=== PATIENT | male | born 1960 | race Caucasian/White ===

== ENCOUNTER 2017-08-23 14:23 | Emergency (ER) | payer MEDICARE, MEDICAID ==
[~2017-08-23] VITALS: Ht 180.3 cm; Wt 71.0 kg
[2017-08-23 14:37] VITALS: BP 124/72
== END 2017-08-23 17:12 | disposition home or self-care (01) ==
LOC: ED 15:54
DX: S00.81XA Abrasion of other part of head, initial encounter (principal); W19.XXXA Unspecified fall, initial encounter; Y93.89 Activity, other specified; Y99.8 Other external cause status; Y92.89 Other specified places as the place of occurrence of the external cause
CPT/HCPCS: 70450; 99284

== ENCOUNTER 2017-08-25 16:22 | Emergency (ER) | payer MEDICARE, MEDICAID ==
[~2017-08-25] VITALS: Ht 182.9 cm; Wt 62.0 kg
[2017-08-25 16:30] VITALS: BP 112/70
[2017-08-25] MEDS ORDERED: PLEASE ENTER HEIGHT AND WEIGHT MC SCH (16:30)
[2017-08-25] MEDS ORDERED: DIPH,PERTUSS(ACELL),TET VAC/PF 0.5 ML IM-VACC ONE ×2 (16:30→16:36)
[2017-08-25] MEDS ORDERED: LIDOCAINE 1%, 10ML INFIL ONE (16:30)
[2017-08-25] MEDS ORDERED: LIDOCAINE-MPF 1%, 2ML ONE (16:40)
[2017-08-25] MEDS ORDERED: BACITRACIN ZINC OINT 500U/GM, 0.9 GM ONE (16:57)
== END 2017-08-25 18:06 | disposition home or self-care (01) ==
LOC: ED 18:00
DX: S01.01XA Laceration without foreign body of scalp, initial encounter (principal); R00.1 Bradycardia, unspecified; W18.30XA Fall on same level, unspecified, initial encounter; Y93.89 Activity, other specified; Y99.8 Other external cause status; Y92.009 Unspecified place in unspecified non-institutional (private) residence as the place of occurrence of the external cause; Z79.899 Other long term (current) drug therapy
CPT/HCPCS: 12001; 90471; 90715; 99283; J3490

== ENCOUNTER 2017-10-29 08:22 | Emergency (ER) | payer MEDICARE, MEDICAID ==
[~2017-10-29] VITALS: Ht 177.8 cm; Wt 68.0 kg
[2017-10-29 10:02] VITALS: BP 109/56
== END 2017-10-29 11:12 | disposition home or self-care (01) ==
LOC: ED 08:57
DX: S09.8XXA Other specified injuries of head, initial encounter (principal); X58.XXXA Exposure to other specified factors, initial encounter; Y93.89 Activity, other specified; Y99.8 Other external cause status; Y92.009 Unspecified place in unspecified non-institutional (private) residence as the place of occurrence of the external cause
CPT/HCPCS: 70450; 99284

== ENCOUNTER 2017-12-05 12:08 | Emergency (ER) | payer MEDICARE, MEDICAID ==
[~2017-12-05] VITALS: Ht 182.9 cm; Wt 57.4 kg
[2017-12-05 15:47] VITALS: BP 141/118
== END 2017-12-05 17:28 | disposition home or self-care (01) ==
LOC: ED 12:14
DX: S62.317A Displaced fracture of base of fifth metacarpal bone, left hand, initial encounter for closed fracture (principal); X58.XXXA Exposure to other specified factors, initial encounter; Y93.89 Activity, other specified; Y99.8 Other external cause status; Y92.89 Other specified places as the place of occurrence of the external cause
CPT/HCPCS: 99284

== ENCOUNTER 2019-02-05 13:36 | Emergency (ER) | payer MEDICARE, MEDICAID ==
[~2019-02-05] VITALS: Ht 175.3 cm; Wt 69.0 kg
[~2019-02-05 13:36] MED LIST: CALC500T29 PO; CHOL10003 PO; DIVA500T2 PO; FAMO20TA7 PO; METO25TA35 PO; QUET150T4 PO; SERT50TA28 PO
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
[2019-02-05] MEDS ORDERED: ONDANSETRON ODT 4 MG ONE (14:15)
[2019-02-05] MEDS ORDERED: ONDANSETRON ODT 4 MG PO ONE (14:30)
--- NOTE | 2019-02-05 14:38 | NUR ---
Call placed to CT, pt 2nd next. pt helped to and from bed jensen. No change in condition.
--- NOTE | 2019-02-05 15:16 | NUR ---
TASK RN, COVERING MEAL BREAK. PT TO CT.
--- NOTE | 2019-02-05 15:53 | NUR ---
all results back, pt up for recheck.
[2019-02-05 16:18] VITALS: BP 124/73
--- NOTE | 2019-02-05 16:18 | NUR ---
CT NEG, PT TO BE DC. ATTEMPTING TO BOOK TRANSPORT TO [facility]. VSS. TOILETED. CALL SORENSEN IN REACH.
--- NOTE | 2019-02-05 17:01 | NUR ---
attempt to call emergency contacts, 2 numbers not working and 1 is the incorrect number. pt toileted. call yeung in reach.
--- NOTE | 2019-02-05 17:05 | NUR ---
AFTER MULTIPLE ATTEMPTS TO FIND PT [facility] WHICH WERE UNSUCCESSFUL, CALL PLACED TO SW TO ADVANCE SEARCH.
--- NOTE | 2019-02-05 17:16 | NUR ---
CONTACT MADE WITH PT [facility]-TER[facility] [phone], , INFORMED STAFF PT IS BEING DISCHARGED. STAFF STATES PT CAN BE SENT HOME IN CAB, ADDRESS: [address] [place], AND THEY WILL MEET PT AT THE DOOR.
--- NOTE | 2019-02-05 17:43 | NUR ---
pt dressed. all belongings with pt, including cane. pt transferred to wheelchair. tech to accompany pt to discharge window and wait w/ pt for taxi. [employer] book [id number]. call to longterm, they will help pt to house. dc papers given to pt in bag.
== END 2019-02-05 17:48 | disposition home or self-care (01) ==
LOC: ED 15:02
DX: S09.90XA Unspecified injury of head, initial encounter (principal); F17.200 Nicotine dependence, unspecified, uncomplicated; W01.0XXA Fall on same level from slipping, tripping and stumbling without subsequent striking against object, initial encounter; Y93.89 Activity, other specified; Y92.89 Other specified places as the place of occurrence of the external cause; Y99.8 Other external cause status
CPT/HCPCS: 70450; 72125; 99284; Q0162

== ENCOUNTER 2019-04-03 19:11 | Emergency (ER) | payer MEDICARE, MEDICAID ==
[~2019-04-03] VITALS: Ht 175.3 cm; Wt 68.0 kg
[2019-04-03] MEDS ORDERED: DIPH,PERTUSS(ACELL),TET VAC/PF 0.5 ML IM-VACC ONE ×2 (19:30→19:53)
[2019-04-03] MEDS ORDERED: LIDOCAINE-MPF 1%, 5ML INFIL ONE (19:30)
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
--- NOTE | 2019-04-03 19:48 | NUR ---
[facility] provided number and address of senior living. [phone] [place] [address]
[2019-04-03] MEDS ORDERED: LIDOCAINE-MPF 1%, 5ML ONE (19:52)
--- NOTE | 2019-04-03 20:12 | NUR ---
pt to xray
--- NOTE | 2019-04-03 20:25 | NUR ---
Returned for Xray
--- NOTE | 2019-04-03 21:11 | NUR ---
Provider at bedside suture left eye/forehead lac
--- NOTE | 2019-04-03 21:16 | NUR ---
Contacted pts assisted living to advise that pt will be discharged. No answer, left general message, maintaining HIPPA requesting return call at [phone].
[2019-04-03] MEDS ORDERED: NEOSPORIN OINT. PKT 1 PACKET ONE (21:24)
[2019-04-03 21:45] VITALS: BP 115/62
--- NOTE | 2019-04-03 22:06 | NUR ---
Patient and [facility] given discharge instructions and they have confirmed that they understand the instructions. Left via [facility] in no distress.
== END 2019-04-03 22:07 | disposition home or self-care (01) ==
LOC: ED 22:04
DX: S01.81XA Laceration without foreign body of other part of head, initial encounter (principal); R07.89 Other chest pain; M25.552 Pain in left hip; W18.30XA Fall on same level, unspecified, initial encounter; Y93.89 Activity, other specified; Y92.098 Other place in other non-institutional residence as the place of occurrence of the external cause; Y99.8 Other external cause status
CPT/HCPCS: 12051; 90471; 90715; 99284

== ENCOUNTER 2019-04-09 16:53 | Emergency (ER) | payer MEDICARE, MEDICAID ==
[~2019-04-09] VITALS: Ht 182.9 cm; Wt 73.0 kg
--- NOTE | 2019-04-09 17:09 | NUR ---
BREAK RN: PT LINA FIGUEROA AFTER A GLF AT HIS SNF. NO LOC. PT HAS A LAC ON HIS LEFT ARM. PT HAS A HISTORY OF A TBI. WHEN PT GET'S DISCHARGED DIRECTOR WAGNER [phone] IS TO BE CALLED FOR HIS R[facility].
--- NOTE | 2019-04-09 17:28 | NUR ---
REPORT GIVEN TO PIPE ANDERSON
[2019-04-09] MEDS ORDERED: LIDOCAINE-MPF 1%, 5ML INFIL ONE (17:30)
[2019-04-09] MEDS ORDERED: LIDOCAINE 1%-EPI 1:100K, 20ML ONE (17:31)
--- NOTE | 2019-04-09 18:14 | NUR ---
PROVIDER-SUTURED LEFT ARM LACERATION- BLEEDING CONTROLLED. DRESSED WITH BACITRACIN DRESSING
[2019-04-09] MEDS ORDERED: NEOSPORIN OINT. PKT 1 PACKET ONE ×2 (18:22→19:10)
--- NOTE | 2019-04-09 18:40 | NUR ---
TO CT SCAN
[2019-04-09 19:07] VITALS: BP 128/76
--- NOTE | 2019-04-09 21:08 | NUR ---
ASSISTED: [facility] ASSISTED CONTACT: WAGNER MINAYA [phone] WAGNER MANDO S SHE IS UNABLE TO PICK PATIENT UP AND PATIENT UNABLE TO AMBULATE (SEVERE UNILATERAL WEAKNESS FROM OLD TBI)-THROUGHPUT RN MADE AWARE- TO HAVE [facility] TRANSPORT
--- NOTE | 2019-04-09 21:21 | NUR ---
CALLED [facility] SPOKE TO AROLDO SHE STATES THAT SHE COULD NO ID THE PT.
== END 2019-04-09 23:14 | disposition home or self-care (01) ==
LOC: ED 17:10
DX: S51.812A Laceration without foreign body of left forearm, initial encounter (principal); S09.90XA Unspecified injury of head, initial encounter; W01.0XXA Fall on same level from slipping, tripping and stumbling without subsequent striking against object, initial encounter; Y93.89 Activity, other specified; Y92.89 Other specified places as the place of occurrence of the external cause; Y99.8 Other external cause status
CPT/HCPCS: 12032; 70450; 99284

== ENCOUNTER 2019-06-26 17:19 | Emergency (ER) | payer MEDICARE, MEDICAID ==
[~2019-06-26] VITALS: Ht 175.3 cm; Wt 56.0 kg
--- NOTE | 2019-06-26 17:36 | NUR ---
PT BIB EMS FOR GLF AND LAC TO BACK OF HEAD. NO LOC. PT HAS TBI AND LEFT SIDED DEFICITS, WALKS WITH WALKER AND LOST BALANCE. BLEEDING CONTROLLED. VSS. EKG DONE.
--- NOTE | 2019-06-26 18:46 | NUR ---
PT IS BACK FROM CT. CO PAIN IN HEAD FROM LAC.
[2019-06-26 18:49] VITALS: BP 122/78
--- NOTE | 2019-06-26 19:32 | NUR ---
Report received from PIPE Qureshi. This RN to assume care. Patient to be discharged. Patient states he is ambulatory with a cane, baseline. Attempted to stand patient up and he is not steady on his feet for walking at this time. Medical transport being arranged for patient to return to [facility].
--- NOTE | 2019-06-26 19:49 | NUR ---
[facility] @1999, keena set up to address on file at this time.
--- NOTE | 2019-06-26 20:17 | NUR ---
[facility] arrived to take patient back to halfway. Discharge instructions given. All questions and concerns addressed. Patient ambulatory with a steady gait.
== END 2019-06-26 20:19 | disposition home or self-care (01) ==
LOC: ED 17:54
DX: S01.01XA Laceration without foreign body of scalp, initial encounter (principal); F17.200 Nicotine dependence, unspecified, uncomplicated; R94.31 Abnormal electrocardiogram [ECG] [EKG]; W01.0XXA Fall on same level from slipping, tripping and stumbling without subsequent striking against object, initial encounter; Y93.89 Activity, other specified; Y92.009 Unspecified place in unspecified non-institutional (private) residence as the place of occurrence of the external cause; Y99.8 Other external cause status
CPT/HCPCS: 12032; 70450; 71045; 93005; 99285

== ENCOUNTER 2019-11-14 12:38 | Inpatient (IN) | payer MEDICARE, MEDICAID ==
[~2019-11-14] VITALS: Ht 167.6 cm; Wt 54.5 kg
[2019-11-14] MEDS ORDERED: ONDANSETRON 2MG/ML, 2ML ONE (13:14)
[2019-11-14] MEDS ORDERED: MORPHINE SULFATE 4 MG/ML, 1ML ONE ×2 (13:14→15:38)
[2019-11-14] MEDS: MORPHINE SULFATE 4 MG/ML, 1ML IVPush PRN ×2 (13:16→15:39)
--- NOTE | 2019-11-14 13:21 | NUR ---
TASK RN NOTE: IV START, LABS DRAWN, PT MEDICATED PER EMAR. NAD NOTED AT THIS TIME. AWAITING IMAGING. SIDE RAILS UP, CALL LIGHT IN REACH. BEAR WARMER ON FOR PT COMFORT.
[2019-11-14] MEDS ORDERED: SODIUM CHLORIDE FLUSH 10ML SYR IVF ONE (13:30)
[2019-11-14] MEDS ORDERED: ONDANSETRON 2MG/ML, 2ML IVPush ONE (13:30)
--- NOTE | 2019-11-14 13:51 | NUR ---
PT STATES LEFT HIP PAIN IMPROVED SINCE MEDICATED FOR SAME. APPEARS MORE RELAXED
--- NOTE | 2019-11-14 14:30 | NUR ---
SPOKE WITH BLOOD TESTER FOWL VIA PHONE AND MADE AWARE PT HAS WOUND ON LEFT HIP. MD AT BEDSIDE WITH ULTRASOUND AND LABS NOW TO BE ORDERED.
--- NOTE | 2019-11-14 14:30 | NUR ---
LESION WITH ERYTHEMA LEFT HIP NOTED WHEN PANTS REMOVED.
[2019-11-14 15:13] LABS: MEAN CORPUSCULAR HEMOGLOBIN 30.8 pg (27.5-34.5); MEAN PLATELET VOLUME 9.1 fL (7.4-10.4); PLATELET COUNT 174 x10^3/uL (130-400); RED BLOOD COUNT 4.88 x10^6/uL (4.38-5.82); RED CELL DISTRIBUTION WIDTH 14.7 % (9.4-14.8)
[2019-11-14 15:13] LABS: HCT (SEDRATE) 42.1 % (39.2-51.8)
[2019-11-14 15:15] LABS: MD YES
[2019-11-14] MEDS ORDERED: CEFTRIAXONE PMX 1GM/50ML 50 ML ONE (15:20)
[2019-11-14 15:25] LABS: ALBUMIN 3.4 g/dL (3.4-5.0); ANION GAP 8 mmol/L (5-15); CALCIUM 9.5 mg/dL (8.5-10.1); CHLORIDE 102 mmol/L (98-107)
[2019-11-14] MEDS ORDERED: CEFTRIAXONE PMX 1GM/50ML 50 ML IVPB ONE (15:30)
--- NOTE | 2019-11-14 15:34 | NUR ---
RECTAL TEMP TAKEN: 101.8.
[2019-11-14 15:35] LABS: C-REACTIVE PROTEIN, QUANT > 19.00 mg/dL (0.02-0.49)
[2019-11-14] MEDS ORDERED: ACETAMINOPHEN 650 MG SUPP PR ONE (16:00)
[2019-11-14] MEDS ORDERED: ACETAMINOPHEN 650 MG SUPP ONE (16:02)
--- NOTE | 2019-11-14 16:09 | NUR ---
PT MEDICATED PER APR. PT RESTING COMFORTABLY AND "FIST BUMPED" WHEN ASKED IF HIS PAIN WAS BETTER.
--- NOTE | 2019-11-14 16:21 | NUR ---
SANDER SETTER PATEL [phone].
--- NOTE | 2019-11-14 16:25 | NUR ---
PATEL, ORDER ENTRY ADMINISTRATOR, ADVISED OF PT BEING ADMITTED. ORDER ENTRY ADMINISTRATOR WANTED TO MAKE SURE STAFF KNEW HE HAS A HX OF DEMENTIA AND MAY BECOME CONFUSED, ESPECIALLY IN THE EVENING. PT FELL IN MARCH AND HASN'T PUT WEIGHT ON IT SINCE THEN.
--- NOTE | 2019-11-14 16:29 | NUR ---
VIT B 2000 UNITS/DAILY CITRICEL 500 MG/DAILY SERTRALINE 100 MG/DAILY DEPAKOT 500 MG/DAILY AT NIGHT SEROQUEL 200 MG/DAILY AT [facility] LORAZEPAM 0.5 MG PRN AGRESSION
[2019-11-14 16:41] LABS: BAND#(MANUAL) 0.64 x10^3/uL; BANDS%(MANUAL) 4 % (0-7); LYMPH#(MANUAL) 0.97 x10^3/uL (1-3.4); LYMPHS% (MANUAL) 6 % (22-44); MONOS#(MANUAL) 1.93 x10^3/uL (0.3-2.7); MONOS% (MANUAL) 12 % (2-9); SEG#(MANUAL) 12.56 x10^3/uL (1.8-6.8); SEGS% (MANUAL) 78 % (42-75)
[2019-11-14 16:42] LABS: <PLATELET ESTIMATE> ADEQUATE; <PLT MORPHOLOGY> NORMAL PLT MORPH; <RBC MORPHOLOGY> NORMAL
[2019-11-14] MEDS ORDERED: SODIUM CHLORIDE FLUSH 10ML SYR IVF PRN (17:00)
[2019-11-14] MEDS ORDERED: CITRACEL (17:48)
[2019-11-14] MEDS ORDERED: [UNRECOGNIZED DRUG - OTHER] (17:48)
[2019-11-14] MEDS ORDERED: QUET200T4 PO (17:48)
[2019-11-14] MEDS ORDERED: SERT100T32 PO (17:48)
[2019-11-14] MEDS ORDERED: DIVA500T2 PO (17:48)
[2019-11-14] MEDS ORDERED: LORA-445 PO (17:48)
--- NOTE | 2019-11-14 18:00 | NUR ---
PHONE REPORT GIVEN TO ROULA.
--- NOTE | 2019-11-14 18:29 | NUR ---
PROVIDER BEDSIDE TO WITHDRAW FLUID FROM ABCESS, APPROX 10 ML. SAMPLE SENT TO LAB.
[2019-11-14] MEDS: SODIUM CHLORIDE 0.9% 1,000 ML IV SCH (18:34)
--- NOTE | 2019-11-14 18:42 | NUR ---
DR HORTA BEDSIDE TO DISCUSS BEDSIDE SAMPLE COLLECTION AND SURGICAL OPTIONS. MD ADVISED PT HE SPOKE WITH CAREGIVER ABOUT SURGICAL OPTIONS. UPDATED TEMP ADVISED TO RECEIVING NURSE FOR ROOM 451. OFF FLOOR TO XRAY.
--- NOTE | 2019-11-14 18:56 | NUR ---
DR HORTA SERVICE CONTACTED TO HAVE DR TO CONFIRM LAB ORDER, [phone].
[2019-11-14 18:57] LABS: INTERNATIONAL NORMALIZED RATIO 1.19 (0.93-1.1); PROTHROMBIN TIME 12.3 Seconds (9.6-11.5)
[2019-11-14] MEDS ORDERED: SODIUM CHLORIDE 0.9%, 500ML IVBOLUS ONE (19:00)
[2019-11-14] MEDS ORDERED: BISACODYL 10 MG SUPP PR PRN (19:00)
[2019-11-14] MEDS ORDERED: ACETAMINOPHEN 325 MG TABLET PO PRN (19:00)
[2019-11-14] MEDS ORDERED: VANCOMYCIN PER PHARMACY MC PRN (19:00)
[2019-11-14] MEDS ORDERED: POLYETHYLENE GLYCOL 17 GM PACKET PO PRN (19:00)
[2019-11-14] MEDS ORDERED: METHOCARBAMOL 500 MG TABLET PO PRN (19:00)
[2019-11-14] MEDS ORDERED: LORazepam 1MG TABLET PO PRN (19:00)
[2019-11-14] MEDS ORDERED: GABAPENTIN 300 MG CAPSULE PO PRN (19:00)
--- NOTE | 2019-11-14 19:22 | NUR ---
VERNON CALLED AND STATED "THAT SAMPLE WAS SYNOVIAL FLUID"
[2019-11-14 20:16] VITALS: BP 102/70
[2019-11-14] MEDS ORDERED: PHARMACOKINETIC MONITORING MC PRN (20:30)
[2019-11-14] MEDS ORDERED: VANCOMYCIN 1,300 MG in SODIUM CHLORIDE 0.9% 250 ML IV ONE (20:30)
[2019-11-14] MEDS ORDERED: PHARMACOKINETIC CONSULTATION MC ONE (20:30)
[2019-11-14] MEDS: FAMOTIDINE 20 MG TABLET PO SCH (20:31)
[2019-11-14] MEDS: DIVALPROEX 500 MG TABLET.DR PO SCH (20:31)
[2019-11-14] MEDS: OXYcodone IR 5MG TABLET PO PRN (20:32)
[2019-11-14] MEDS: PIPERACILLIN/TAZO/PMX 3.375GM 50 ML IV SCH (21:43)
[2019-11-15] MEDS: morphine SULFATE 10 MG/ML, 1ML IVPush PRN ×2 (00:34→20:36)
[2019-11-15 00:55] LABS: MICROSCOPIC INDICATED
[2019-11-15 01:05] VITALS: BP 104/54
[2019-11-15] MEDS: SODIUM CHLORIDE 0.9% 1,000 ML IV SCH ×4 (02:14→23:11)
[2019-11-15] MEDS: PIPERACILLIN/TAZO/PMX 3.375GM 50 ML IV SCH ×2 (03:32→10:27)
[2019-11-15 05:45] LABS: CHLORIDE 110 mmol/L (98-107)
[2019-11-15 06:02] LABS: MEAN CORPUSCULAR HEMOGLOBIN 30.7 pg (27.5-34.5); MEAN CORPUSCULAR HGB CONC 32.8 g/dL (33.2-36.2); MEAN PLATELET VOLUME 7.7 fL (7.4-10.4); PLATELET COUNT 157 x10^3/uL (130-400); RED BLOOD COUNT 4.04 x10^6/uL (4.38-5.82); RED CELL DISTRIBUTION WIDTH 14.9 % (9.4-14.8)
[2019-11-15 06:03] LABS: ALANINE AMINOTRANSFERASE 26 U/L (12-78); ALBUMIN 2.3 g/dL (3.4-5.0); ALKALINE PHOSPHATASE 40 U/L (45-117); ANION GAP 7 mmol/L (5-15); BILIRUBIN,TOTAL 0.6 mg/dL (0.2-1.0); CALCIUM 8.3 mg/dL (8.5-10.1); CREATININE 0.92 mg/dL (0.7-1.3); TOTAL PROTEIN 6.2 g/dL (6.4-8.2)
[2019-11-15 06:43] LABS: BASOPHILS # (AUTO) 0.02 x10^3/uL (0-0.1); BASOPHILS % (AUTO) 0 % (0-1); EOSINOPHILS # (AUTO) 0.01 x10^3/uL (0-0.4); EOSINOPHILS % (AUTO) 0 % (1-7); LYMPHOCYTES # (AUTO) 0.47 x10^3/uL (1-3.4); LYMPHOCYTES % (AUTO) 4 % (22-44); MD SCAN; MONOCYTES # (AUTO) 0.91 x10^3/uL (0.2-0.8); MONOCYTES % (AUTO) 7 % (2-9); NEUTROPHILS # (AUTO) 11.58 x10^3/uL (1.8-6.8); NEUTROPHILS % (AUTO) 89 % (42-75)
[2019-11-15 07:14] VITALS: BP 99/74
[2019-11-15] MEDS ORDERED: VANCOMYCIN 1,100 MG in SODIUM CHLORIDE 0.9% 250 ML IV SCH (09:00)
[2019-11-15] MEDS: SERTRALINE 100MG TABLET PO SCH ×2 (09:50→10:24)
[2019-11-15] MEDS: QUETIAPINE 200 MG TABLET PO SCH ×2 (09:50→10:25)
[2019-11-15] MEDS: FAMOTIDINE 20 MG TABLET PO SCH ×3 (09:51→20:14)
[2019-11-15] MEDS: SENNA/DOCUSATE TABLET PO SCH ×2 (09:51→10:24)
[2019-11-15] MEDS ORDERED: OMNIPAQUE 350 MG/ML, 100ML BOTTLE ONE (10:38)
[2019-11-15] MEDS ORDERED: ENOXAPARIN 40 MG/0.4 ML SQ ONE (11:30)
[2019-11-15 11:51] VITALS: BP 92/56
[2019-11-15] MEDS ORDERED: SODIUM CHLORIDE 0.9% 500 ML IV SCH (12:00)
[2019-11-15] MEDS ORDERED: ALBUMIN HUMAN 25% 100 ML IV PRN (12:00)
[2019-11-15] MEDS ORDERED: ALBUMIN HUMAN 25% 100 ML ONE (12:04)
[2019-11-15 12:45] VITALS: BP 101/66
[2019-11-15] MEDS: DAPTOMYCIN IVPB SCH (17:00)
[2019-11-15] MEDS: SODIUM CHLORIDE 0.9% IVPB SCH (17:00)
[2019-11-15] MEDS: ENOXAPARIN 40 MG/0.4 ML SQ SCH (18:25)
[2019-11-15] MEDS: DIVALPROEX 500 MG TABLET.DR PO SCH (20:15)
[2019-11-15 20:26] VITALS: BP 123/73
[2019-11-15 23:59] VITALS: BP 116/68
[2019-11-16] MEDS: SODIUM CHLORIDE 0.9% 1,000 ML IV SCH ×2 (06:02→20:08)
[2019-11-16 06:13] LABS: MEAN CORPUSCULAR HEMOGLOBIN 30.8 pg (27.5-34.5); MEAN CORPUSCULAR HGB CONC 32.5 g/dL (33.2-36.2); MEAN PLATELET VOLUME 7.8 fL (7.4-10.4); PLATELET COUNT 155 x10^3/uL (130-400); RED BLOOD COUNT 3.84 x10^6/uL (4.38-5.82)
[2019-11-16 06:18] LABS: CHLORIDE 113 mmol/L (98-107)
[2019-11-16 06:25] LABS: ALANINE AMINOTRANSFERASE 20 U/L (12-78); ALBUMIN 2.1 g/dL (3.4-5.0); ALKALINE PHOSPHATASE 40 U/L (45-117); ANION GAP 6 mmol/L (5-15); BILIRUBIN,TOTAL 0.5 mg/dL (0.2-1.0); CALCIUM 8.4 mg/dL (8.5-10.1); CREATINE KINASE, TOTAL 172 U/L (39-308); CREATININE 0.69 mg/dL (0.7-1.3); TOTAL PROTEIN 5.8 g/dL (6.4-8.2)
[2019-11-16 06:46] LABS: MD YES
[2019-11-16 06:48] LABS: <PLATELET ESTIMATE> ADEQUATE; <PLT MORPHOLOGY> NORMAL PLT MORPH; <RBC MORPHOLOGY> NORMAL; BAND#(MANUAL) 0.71 x10^3/uL; BANDS%(MANUAL) 7 % (0-7); LYMPH#(MANUAL) 0.71 x10^3/uL (1-3.4); LYMPHS% (MANUAL) 7 % (22-44); MONOS#(MANUAL) 0.31 x10^3/uL (0.3-2.7); MONOS% (MANUAL) 3 % (2-9); SEG#(MANUAL) 8.47 x10^3/uL (1.8-6.8); SEGS% (MANUAL) 83 % (42-75)
[2019-11-16] MEDS ORDERED: SODIUM CHLORIDE 0.9% 50 ML ONE (06:49)
[2019-11-16] MEDS ORDERED: VANCOMYCIN 1,000 MG ONE ×3 (06:49→15:33)
[2019-11-16] MEDS ORDERED: EPINEPHRINE 1 MG/ML, 1ML ONE (06:49)
[2019-11-16] MEDS ORDERED: ROPIvacaine/PF 0.5%, 20 ML ONE (06:49)
[2019-11-16] MEDS ORDERED: TRANEXAMIC ACID 100 MG/ML, 10ML ONE ×2 (09:35)
[2019-11-16] MEDS: QUETIAPINE 200 MG TABLET PO SCH (09:36)
[2019-11-16] MEDS: SENNA/DOCUSATE TABLET PO SCH (09:36)
[2019-11-16] MEDS: SERTRALINE 100MG TABLET PO SCH (09:36)
[2019-11-16] MEDS: FAMOTIDINE 20 MG TABLET PO SCH ×2 (09:36→20:37)
[2019-11-16] MEDS ORDERED: FENTANYL PF 250 MCG/5ML ONE ×2 (11:12→15:54)
[2019-11-16] MEDS ORDERED: ROCURONIUM 10MG/ML,5ML ONE (11:13)
[2019-11-16] MEDS ORDERED: SUGAMMADEX 200 MG/2 ML IVPush ONE (11:13)
[2019-11-16] MEDS ORDERED: ONDANSETRON 2MG/ML, 2ML ONE ×2 (11:13→14:59)
[2019-11-16 11:28] VITALS: BP 108/78
[2019-11-16 12:14] VITALS: BP 135/73
[2019-11-16] MEDS ORDERED: KETOROLAC 60 MG/2 ML ONE (12:29)
[2019-11-16] MEDS ORDERED: CHLORHEXIDINE 15 ML UDC MM ONE (12:29)
[2019-11-16] MEDS ORDERED: CHLORHEXIDINE 15 ML UDC ONE (12:33)
[2019-11-16] MEDS ORDERED: PROPOFOL 50 ML ONE (14:59)
[2019-11-16] MEDS ORDERED: NEOSTIGMINE 1 MG/ML, 10ML ONE (14:59)
[2019-11-16] MEDS ORDERED: CEFAZOLIN 1,000 MG ONE (14:59)
[2019-11-16] MEDS ORDERED: GLYCOPYRROLATE 0.2MG/1ML, 5ML ONE (14:59)
[2019-11-16] MEDS ORDERED: PROPOFOL 10 MG/ML, 20ML ONE (14:59)
[2019-11-16] MEDS ORDERED: DEXAMETHASONE 4 MG/ML, 1ML ONE (14:59)
[2019-11-16] MEDS ORDERED: SUCCINYLCHOLINE 20 MG/ML, 10ML ONE (14:59)
[2019-11-16] MEDS ORDERED: FENTANYL PF 100 MCG/2ML ONE (16:28)
[2019-11-16] MEDS ORDERED: OXYcodone 5 MG/5 ML ORAL.SOL UDC ONE (16:28)
[2019-11-16] MEDS ORDERED: hydrALAzine 20 MG/ML, 1ML IV PRN (17:00)
[2019-11-16] MEDS ORDERED: EPHEDRINE 50 MG/ML, 1ML IVPush PRN (17:00)
[2019-11-16] MEDS ORDERED: HYDROmorphone 1 MG/ML, 1ML INJ IVPush PRN (17:00)
[2019-11-16] MEDS ORDERED: OXYcodone 5 MG/5 ML ORAL.SOL UDC PO PRN (17:00)
[2019-11-16] MEDS ORDERED: PROMETHAZINE 12.5 MG SUPP PR PRN (17:00)
[2019-11-16] MEDS ORDERED: LABETALOL 5MG/ML, 20ML IV PRN (17:00)
[2019-11-16] MEDS ORDERED: ACETAMINOPHEN 325 MG TABLET PO PRN (17:00)
[2019-11-16] MEDS ORDERED: FENTANYL PF 100 MCG/2ML IV PRN (17:00)
[2019-11-16 19:45] VITALS: BP 109/72
[2019-11-16] MEDS: DAPTOMYCIN IVPB SCH (20:07)
[2019-11-16] MEDS: SODIUM CHLORIDE 0.9% IVPB SCH (20:07)
[2019-11-16] MEDS: DIVALPROEX 500 MG TABLET.DR PO SCH (20:37)
[2019-11-16] MEDS: OXYcodone IR 5MG TABLET PO PRN (20:38)
[2019-11-16] MEDS: ENOXAPARIN 40 MG/0.4 ML SQ SCH (21:12)
[2019-11-17] VITALS (9 sets, daily range): BP systolic 93–135; BP diastolic 51–77
[2019-11-17] MEDS: SODIUM CHLORIDE 0.9% 1,000 ML IV SCH ×2 (02:28→09:19)
[2019-11-17 07:10] LABS: MEAN CORPUSCULAR HEMOGLOBIN 30.8 pg (27.5-34.5); MEAN CORPUSCULAR HGB CONC 32.4 g/dL (33.2-36.2); MEAN PLATELET VOLUME 7.9 fL (7.4-10.4); PLATELET COUNT 178 x10^3/uL (130-400); RED BLOOD COUNT 2.76 x10^6/uL (4.38-5.82); RED CELL DISTRIBUTION WIDTH 14.4 % (9.4-14.8)
[2019-11-17 07:19] LABS: ANION GAP 6 mmol/L (5-15); CALCIUM 8.2 mg/dL (8.5-10.1); CHLORIDE 115 mmol/L (98-107); CREATININE 0.75 mg/dL (0.7-1.3)
[2019-11-17 07:25] LABS: BASOPHILS % (AUTO) 0 % (0-1); EOSINOPHILS % (AUTO) 0 % (1-7); LYMPHOCYTES # (AUTO) 0.42 x10^3/uL (1-3.4); LYMPHOCYTES % (AUTO) 4 % (22-44); MD SCAN; MONOCYTES # (AUTO) 0.58 x10^3/uL (0.2-0.8); MONOCYTES % (AUTO) 6 % (2-9); NEUTROPHILS # (AUTO) 8.77 x10^3/uL (1.8-6.8); NEUTROPHILS % (AUTO) 90 % (42-75)
[2019-11-17] MEDS: SENNA/DOCUSATE TABLET PO SCH (09:17)
[2019-11-17] MEDS: FAMOTIDINE 20 MG TABLET PO SCH ×2 (09:17→20:29)
[2019-11-17] MEDS: SERTRALINE 100MG TABLET PO SCH (09:17)
[2019-11-17] MEDS: QUETIAPINE 100MG TABLET PO SCH (09:19)
[2019-11-17] MEDS ORDERED: METOPROLOL 1 MG/ML, 5ML ONE (13:24)
[2019-11-17] MEDS ORDERED: METOPROLOL 1 MG/ML, 5ML IVPush ONE ×2 (13:30→14:30)
[2019-11-17] MEDS: OXYcodone IR 5MG TABLET PO PRN (13:30)
[2019-11-17] MEDS ORDERED: SODIUM CHLORIDE 0.9%, 250ML IVBOLUS ONE (13:30)
[2019-11-17] MEDS ORDERED: ALBUMIN HUMAN 25% 100 ML IV ONE ×2 (14:30→17:00)
[2019-11-17 15:15] LABS: FREE T4 (FREE THYROXINE) 0.93 ng/dL (0.76-1.46)
[2019-11-17] MEDS: ENOXAPARIN 40 MG/0.4 ML SQ SCH (16:27)
[2019-11-17] MEDS: DILTIAZEM 30 MG TABLET PO SCH ×2 (17:18→23:00)
[2019-11-17] MEDS: D5%-0.45NACL+KCL 20MEQ 1,000 ML IV SCH (18:34)
[2019-11-17] MEDS ORDERED: DIPHENHYDRAMINE 50 MG/ML, 1ML IVPush ONE (19:30)
[2019-11-17] MEDS: DIVALPROEX 500 MG TABLET.DR PO SCH (20:29)
[2019-11-17] MEDS: DAPTOMYCIN IVPB SCH (20:30)
[2019-11-17] MEDS: SODIUM CHLORIDE 0.9% IVPB SCH (20:30)
[2019-11-18] VITALS (7 sets, daily range): BP systolic 104–147; BP diastolic 67–91
[2019-11-18] MEDS ORDERED: ALBUMIN HUMAN 25% 100 ML IV ONE
[2019-11-18] MEDS: DILTIAZEM 30 MG TABLET PO SCH ×4 (05:00→23:00)
[2019-11-18 05:54] LABS: MEAN CORPUSCULAR HEMOGLOBIN 29.7 pg (27.5-34.5); MEAN PLATELET VOLUME 7.7 fL (7.4-10.4); PLATELET COUNT 175 x10^3/uL (130-400); RED BLOOD COUNT 3.03 x10^6/uL (4.38-5.82); RED CELL DISTRIBUTION WIDTH 16.1 % (9.4-14.8)
[2019-11-18 06:01] LABS: ANION GAP 5 mmol/L (5-15); CALCIUM 8.7 mg/dL (8.5-10.1); CHLORIDE 115 mmol/L (98-107); CREATININE 0.67 mg/dL (0.7-1.3)
[2019-11-18 06:33] LABS: BASOPHILS # (AUTO) 0.01 x10^3/uL (0-0.1); BASOPHILS % (AUTO) 0 % (0-1); EOSINOPHILS # (AUTO) 0.06 x10^3/uL (0-0.4); EOSINOPHILS % (AUTO) 1 % (1-7); LYMPHOCYTES # (AUTO) 0.86 x10^3/uL (1-3.4); LYMPHOCYTES % (AUTO) 11 % (22-44); MD SCAN; MONOCYTES % (AUTO) 9 % (2-9); NEUTROPHILS # (AUTO) 6.37 x10^3/uL (1.8-6.8); NEUTROPHILS % (AUTO) 80 % (42-75)
[2019-11-18] MEDS: FAMOTIDINE 20 MG TABLET PO SCH ×2 (08:25→21:00)
[2019-11-18] MEDS: OXYcodone IR 5MG TABLET PO PRN ×3 (08:26→17:46)
[2019-11-18] MEDS: SERTRALINE 100MG TABLET PO SCH (08:26)
[2019-11-18] MEDS: QUETIAPINE 100MG TABLET PO SCH (08:26)
[2019-11-18] MEDS: SENNA/DOCUSATE TABLET PO SCH (08:27)
[2019-11-18] MEDS: D5%-0.45NACL+KCL 20MEQ 1,000 ML IV SCH (14:47)
[2019-11-18] MEDS: DAPTOMYCIN 350 MG in SODIUM CHLORIDE 0.9% 100 ML IVPB SCH (20:00)
[2019-11-18] MEDS: DIVALPROEX 500 MG TABLET.DR PO SCH (21:00)
[2019-11-19 01:09] VITALS: BP 124/77
[2019-11-19] MEDS: D5%-0.45NACL+KCL 20MEQ 1,000 ML IV SCH ×2 (03:50→11:57)
[2019-11-19] MEDS: DILTIAZEM 30 MG TABLET PO SCH ×4 (05:00→22:55)
[2019-11-19 07:22] VITALS: BP 126/83
[2019-11-19] MEDS: SENNA/DOCUSATE TABLET PO SCH (09:00)
[2019-11-19] MEDS: ASPIRIN 81 MG TABLET CHEW PO SCH (09:23)
[2019-11-19] MEDS: SERTRALINE 100MG TABLET PO SCH (09:23)
[2019-11-19] MEDS: FAMOTIDINE 20 MG TABLET PO SCH ×2 (09:23→19:55)
[2019-11-19 12:33] VITALS: BP 116/69
[2019-11-19] MEDS: morphine SULFATE 10 MG/ML, 1ML IVPush PRN (17:25)
[2019-11-19 18:37] VITALS: BP 131/78
[2019-11-19] MEDS: DAPTOMYCIN 350 MG in SODIUM CHLORIDE 0.9% 100 ML IVPB SCH (19:55)
[2019-11-19] MEDS: DIVALPROEX 500 MG TABLET.DR PO SCH (19:55)
[2019-11-19 22:55] VITALS: BP 124/76
[2019-11-20] MEDS: D5%-0.45NACL+KCL 20MEQ 1,000 ML IV SCH ×2 (03:29→16:26)
[2019-11-20 04:35] LABS: BASOPHILS # (AUTO) 0.03 x10^3/uL (0-0.1); BASOPHILS % (AUTO) 0 % (0-1); EOSINOPHILS # (AUTO) 0.18 x10^3/uL (0-0.4); EOSINOPHILS % (AUTO) 2 % (1-7); LYMPHOCYTES # (AUTO) 1.16 x10^3/uL (1-3.4); LYMPHOCYTES % (AUTO) 11 % (22-44); MD NO; MEAN CORPUSCULAR HEMOGLOBIN 30.7 pg (27.5-34.5); MEAN CORPUSCULAR HGB CONC 33.4 g/dL (33.2-36.2); MEAN PLATELET VOLUME 7.4 fL (7.4-10.4); MONOCYTES # (AUTO) 1.42 x10^3/uL (0.2-0.8); MONOCYTES % (AUTO) 13 % (2-9); NEUTROPHILS # (AUTO) 8.24 x10^3/uL (1.8-6.8); NEUTROPHILS % (AUTO) 75 % (42-75); PLATELET COUNT 244 x10^3/uL (130-400); RED BLOOD COUNT 3.13 x10^6/uL (4.38-5.82); RED CELL DISTRIBUTION WIDTH 15.4 % (9.4-14.8)
[2019-11-20 04:38] LABS: CHLORIDE 103 mmol/L (98-107)
[2019-11-20 04:42] LABS: ANION GAP 6 mmol/L (5-15); CALCIUM 8.4 mg/dL (8.5-10.1); CREATININE 0.51 mg/dL (0.7-1.3)
[2019-11-20] MEDS: DILTIAZEM 30 MG TABLET PO SCH ×3 (05:06→17:23)
[2019-11-20 06:18] VITALS: BP 123/77
[2019-11-20] MEDS: SENNA/DOCUSATE TABLET PO SCH (07:24)
[2019-11-20] MEDS: FAMOTIDINE 20 MG TABLET PO SCH ×2 (07:47→20:29)
[2019-11-20] MEDS: ASPIRIN 81 MG TABLET CHEW PO SCH (07:47)
[2019-11-20] MEDS: SERTRALINE 100MG TABLET PO SCH (07:47)
[2019-11-20 13:54] VITALS: BP 117/73
[2019-11-20] MEDS: morphine SULFATE 10 MG/ML, 1ML IVPush PRN (17:22)
[2019-11-20 19:01] VITALS: BP 122/78
[2019-11-20] MEDS: DAPTOMYCIN 350 MG in SODIUM CHLORIDE 0.9% 100 ML IVPB SCH (19:48)
[2019-11-20] MEDS: DIVALPROEX 500 MG TABLET.DR PO SCH (20:30)
[2019-11-20] MEDS: OXYcodone IR 5MG TABLET PO PRN (20:30)
[2019-11-21] MEDS: OXYcodone IR 5MG TABLET PO PRN ×2 (01:02→09:21)
[2019-11-21 01:50] VITALS: BP 116/71
[2019-11-21] MEDS: D5%-0.45NACL+KCL 20MEQ 1,000 ML IV SCH ×2 (05:06→19:45)
[2019-11-21 07:50] LABS: HCT (SEDRATE) 29.2 % (39.2-51.8)
[2019-11-21 07:58] LABS: BASOPHILS # (AUTO) 0.06 x10^3/uL (0-0.1); BASOPHILS % (AUTO) 1 % (0-1); EOSINOPHILS # (AUTO) 0.21 x10^3/uL (0-0.4); EOSINOPHILS % (AUTO) 2 % (1-7); LYMPHOCYTES # (AUTO) 1.38 x10^3/uL (1-3.4); LYMPHOCYTES % (AUTO) 14 % (22-44); MD NO; MEAN CORPUSCULAR HEMOGLOBIN 29.9 pg (27.5-34.5); MEAN CORPUSCULAR HGB CONC 32.3 g/dL (33.2-36.2); MEAN PLATELET VOLUME 6.9 fL (7.4-10.4); MONOCYTES % (AUTO) 14 % (2-9); NEUTROPHILS # (AUTO) 7.04 x10^3/uL (1.8-6.8); NEUTROPHILS % (AUTO) 70 % (42-75); PLATELET COUNT 309 x10^3/uL (130-400); RED BLOOD COUNT 3.18 x10^6/uL (4.38-5.82); RED CELL DISTRIBUTION WIDTH 15.7 % (9.4-14.8)
[2019-11-21 08:00] LABS: ALBUMIN 2.3 g/dL (3.4-5.0); ANION GAP 4 mmol/L (5-15); CALCIUM 8.1 mg/dL (8.5-10.1); CHLORIDE 105 mmol/L (98-107)
[2019-11-21 08:07] LABS: ALANINE AMINOTRANSFERASE 44 U/L (12-78); ALKALINE PHOSPHATASE 35 U/L (45-117); BILIRUBIN,TOTAL 0.6 mg/dL (0.2-1.0); CREATINE KINASE, TOTAL 145 U/L (39-308); CREATININE 0.59 mg/dL (0.7-1.3); TOTAL PROTEIN 5.6 g/dL (6.4-8.2)
[2019-11-21 08:11] VITALS: BP 134/82
[2019-11-21] MEDS: SENNA/DOCUSATE TABLET PO SCH (09:00)
[2019-11-21] MEDS: FAMOTIDINE 20 MG TABLET PO SCH ×2 (09:00→20:29)
[2019-11-21] MEDS ORDERED: FAMOTIDINE 40 MG TABLET ONE ×2 (09:05→20:02)
[2019-11-21] MEDS: SERTRALINE 100MG TABLET PO SCH (09:21)
[2019-11-21] MEDS: ASPIRIN 81 MG TABLET CHEW PO SCH (09:22)
[2019-11-21] MEDS: DILTIAZEM 120 MG CAP.ER.24H PO SCH (09:22)
[2019-11-21 14:43] VITALS: BP 123/87
[2019-11-21 18:38] VITALS: BP 118/82
[2019-11-21] MEDS: DIVALPROEX 500 MG TABLET.DR PO SCH (20:29)
[2019-11-21] MEDS: DAPTOMYCIN 350 MG in SODIUM CHLORIDE 0.9% 100 ML IVPB SCH (20:29)
[2019-11-22 02:00] VITALS: BP 111/76
[2019-11-22] MEDS: OXYcodone IR 5MG TABLET PO PRN (05:56)
[2019-11-22 06:06] LABS: BASOPHILS # (AUTO) 0.01 x10^3/uL (0-0.1); BASOPHILS % (AUTO) 0 % (0-1); EOSINOPHILS # (AUTO) 0.24 x10^3/uL (0-0.4); EOSINOPHILS % (AUTO) 2 % (1-7); LYMPHOCYTES # (AUTO) 1.43 x10^3/uL (1-3.4); LYMPHOCYTES % (AUTO) 14 % (22-44); MD NO; MEAN CORPUSCULAR HEMOGLOBIN 30.8 pg (27.5-34.5); MEAN CORPUSCULAR HGB CONC 33.3 g/dL (33.2-36.2); MEAN PLATELET VOLUME 7.1 fL (7.4-10.4); MONOCYTES # (AUTO) 1.61 x10^3/uL (0.2-0.8); MONOCYTES % (AUTO) 16 % (2-9); NEUTROPHILS # (AUTO) 6.79 x10^3/uL (1.8-6.8); NEUTROPHILS % (AUTO) 67 % (42-75); PLATELET COUNT 464 x10^3/uL (130-400); RED BLOOD COUNT 3.76 x10^6/uL (4.38-5.82); RED CELL DISTRIBUTION WIDTH 15.6 % (9.4-14.8)
[2019-11-22 07:22] VITALS: BP 113/71
[2019-11-22] MEDS ORDERED: FAMOTIDINE 40 MG TABLET ONE (09:29)
[2019-11-22] MEDS: SERTRALINE 100MG TABLET PO SCH (09:42)
[2019-11-22] MEDS: ASPIRIN 81 MG TABLET CHEW PO SCH (09:42)
[2019-11-22] MEDS: FAMOTIDINE 20 MG TABLET PO SCH (09:43)
[2019-11-22] MEDS: SENNA/DOCUSATE TABLET PO SCH (09:43)
[2019-11-22] MEDS: D5%-0.45NACL+KCL 20MEQ 1,000 ML IV SCH (10:45)
[2019-11-22] MEDS: DILTIAZEM 120 MG CAP.ER.24H PO SCH (10:45)
[2019-11-22 13:23] VITALS: BP 118/89
[2019-11-22] MEDS ORDERED: FAMO20TA7 PO (13:49)
[2019-11-22] MEDS ORDERED: ACET325T26 PO (13:49)
[2019-11-22] MEDS ORDERED: METH500T7 PO (13:49)
[2019-11-22] MEDS ORDERED: Diltiazem Cd PO (13:49)
[2019-11-22] MEDS ORDERED: BISA10SU4 PR (13:49)
[2019-11-22] MEDS ORDERED: OXYC5TAB3 PO (13:49)
[2019-11-22] MEDS ORDERED: DAPT500V6 IV (13:49)
[2019-11-22] MEDS ORDERED: GABA300C PO (13:49)
[2019-11-22] MEDS ORDERED: POLY17PO5 PO (13:49)
[2019-11-22] MEDS ORDERED: ASPI-515 PO (13:49)
[2019-11-22] MEDS ORDERED: Senna/Docusate PO (13:49)
[2019-11-22] MEDS ORDERED: ENOX40SY4 SQ (13:51)
== END 2019-11-22 17:27 | DRG 466 ==
LOC: ED 13:30 → EDIP 16:58 → SUATTDRO 17:22 → 4NE 19:40 → 4WST 11-15 00:54
PROVIDERS: ADMIT Internal Medicine; ATTEND Internal Medicine
PROC: 0T9B70Z Drainage of Bladder with Drainage Device, Via Natural or Artificial Opening (ICD-10-PCS; 2019-11-15)
PROC: 0SPB0JZ Removal of Synthetic Substitute from Left Hip Joint, Open Approach (ICD-10-PCS; 2019-11-16)
PROC: 02HV33Z Insertion of Infusion Device into Superior Vena Cava, Percutaneous Approach (ICD-10-PCS; 2019-11-16)
PROC: B5181ZA Fluoroscopy of Superior Vena Cava using Low Osmolar Contrast, Guidance (ICD-10-PCS; 2019-11-16)
PROC: B548ZZA Ultrasonography of Superior Vena Cava, Guidance (ICD-10-PCS; 2019-11-16)
PROC: 0SRB0J9 Replacement of Left Hip Joint with Synthetic Substitute, Cemented, Open Approach (ICD-10-PCS; principal; 2019-11-16 13:30)
PROC: 30233N1 Transfusion of Nonautologous Red Blood Cells into Peripheral Vein, Percutaneous Approach (ICD-10-PCS; 2019-11-17)
DX: T84.52XA Infection and inflammatory reaction due to internal left hip prosthesis, initial encounter (principal); A41.02 Sepsis due to Methicillin resistant Staphylococcus aureus; E43 Unspecified severe protein-calorie malnutrition; M00.052 Staphylococcal arthritis, left hip; D62 Acute posthemorrhagic anemia; E87.0 Hyperosmolality and hypernatremia; F03.91 Unspecified dementia, unspecified severity, with behavioral disturbance; G40.509 Epileptic seizures related to external causes, not intractable, without status epilepticus; G81.94 Hemiplegia, unspecified affecting left nondominant side; L03.116 Cellulitis of left lower limb; F17.210 Nicotine dependence, cigarettes, uncomplicated; M19.90 Unspecified osteoarthritis, unspecified site; M65.9 Synovitis and tenosynovitis, unspecified; R29.6 Repeated falls; Z79.82 Long term (current) use of aspirin; Z79.899 Other long term (current) drug therapy; Z91.19 Patient's noncompliance with other medical treatment and regimen; Z91.81 History of falling; Z96.642 Presence of left artificial hip joint; Z99.3 Dependence on wheelchair; Z20.828 Contact with and (suspected) exposure to other viral communicable diseases; Y83.1 Surgical operation with implant of artificial internal device as the cause of abnormal reaction of the patient, or of later complication, without mention of misadventure at the time of the procedure; I48.91 Unspecified atrial fibrillation; Y92.89 Other specified places as the place of occurrence of the external cause
CPT/HCPCS: 36415; 36573; 71045; 72193; 80048; 80053; 81001; 82040; 82550; 82962; 83605; 83735; 84100; 84439; 84443; 84481; 85014; 85018; 85025; 85610; 85651; 85810; 86140; 86850; 86900; 86923; 87040; 87070; 87075; 87077; 87147; 87186; 87205; 87635; 89050; 89060; 93306; 96365; 96375; 96376; C1713; G0378; J0171; J0690; J0696; J0878; J1100; J1650; J1885; J2405; J2543; J2704; J2710; J2795; J3010; J3370; P9047; Q9967; C1751; C1763; C1776; J0330; J1200; J2270; J3480; J7030; J7040; J7050; P9016